=== PATIENT | female | born 1975 | race Caucasian/White ===

== ENCOUNTER 2023-04-02 06:37 | Day surgery (SDC) | payer MEDICAID, OTHER ==
[~2023-04-02] VITALS: Ht 157.5 cm; Wt 78.7 kg
[2023-04-02] MEDS ORDERED: SIMETHICONE 40 MG/0.6 ML ML ONE (06:53)
[2023-04-02] MEDS ORDERED: MIDAZOLAM HCL 5 MG/5 ML VIAL ONE (06:53)
[2023-04-02] MEDS ORDERED: MEPERIDINE 100 MG INJ. 100 MG/ML VIAL ONE (06:53)
[2023-04-02 13:04] VITALS: O2SAT 100
[2023-04-02 16:59] VITALS: BP_SYST 131; PULSE 72; RESP 18
== END 2023-04-02 09:25 | disposition home or self-care (01) ==
LOC: SDS 06:37 → SMU 06:38 → SDS 09:25
PROVIDERS: ATTEND Internal Medicine Gastroenterology
DX: R13.10 Dysphagia, unspecified (principal); R10.13 Epigastric pain; K29.50 Unspecified chronic gastritis without bleeding; K20.90 Esophagitis, unspecified without bleeding; K29.80 Duodenitis without bleeding; Z79.899 Other long term (current) drug therapy
CPT/HCPCS: 43239; 43248; 99152; 87081; 36415; 88305; 88312; 88313; G0378; J2250; J2175; C1769

== ENCOUNTER 2023-05-29 06:39 | Day surgery (SDC) | payer OTHER ==
[2023-05-29] MEDS ORDERED: MIDAZOLAM HCL 5 MG/5 ML VIAL ONE (06:49)
[2023-05-29] MEDS ORDERED: MEPERIDINE 100 MG INJ. 100 MG/ML VIAL ONE (07:07)
[2023-05-29 17:35] VITALS: BP_SYST 141; PULSE 76; RESP 16; TEMP 98.2; O2SAT 100
== END 2023-05-29 09:40 | disposition home or self-care (01) ==
LOC: SDS 06:39 → SMU 06:40 → SDS 09:40
PROVIDERS: ATTEND Internal Medicine Gastroenterology
DX: K59.09 Other constipation (principal); R14.0 Abdominal distension (gaseous); K64.8 Other hemorrhoids; D64.9 Anemia, unspecified; E03.9 Hypothyroidism, unspecified; Z79.890 Hormone replacement therapy; Z79.899 Other long term (current) drug therapy; Z98.891 History of uterine scar from previous surgery; Z80.0 Family history of malignant neoplasm of digestive organs
CPT/HCPCS: 99152; 45378; G0378; J2250; J2175